=== PATIENT | female | born 1985 ===

== ENCOUNTER 2018-10-24 18:41 | Emergency (ER) | payer OTHER ==
--- NOTE | 2018-10-24 19:14 | Event Note ---
ED Screening Note ED Screening Note: LMP 4-27 NO OB YET RX NONE PMH NONE PSH NONE NO C/E/DRUGS This initial assessment/diagnostic orders/clinical plan/treatment(s) is/are subject to change based on patients health status, clinical progression and re- assessment by fellow clinical providers in the ED. Further treatment and workup at subsequent clinical providers discretion. Patient/guardian urged not to elope from the ED as their condition may be serious if not clinically assessed and managed. Initial orders include:
[2018-10-24] MEDS ORDERED: TYLENOL PO ONE (19:17)
[2018-10-24 19:46] LABS: Hematocrit 36.9 % (30.3-42.9); Hemoglobin 12.3 gm/dl (10.1-14.3); Mean Corpuscular HGB Conc 33 % (30-34); Mean Corpuscular Volume 91 fl (79-97); Platelet Count 300 K/mm3 (140-440); Red Blood Count 4.07 M/mm3 (3.65-5.03); Red Cell Distribution Width 13.6 % (13.2-15.2)
[2018-10-24 20:11] LABS: BUN/Creatinine Ratio 20; Blood Urea Nitrogen 10 mg/dL (7-17); Calcium 8.7 mg/dL (8.4-10.2); Hemolysis Index 9
[2018-10-24 20:14] LABS: Bacteria,Urine 2+ /HPF (Negative); Bilirubin,Urine NEG (Negative); Blood,Urine SM (Negative); Color,Urine Yellow (Yellow); Mucus,Urine FEW /HPF; Protein,Urine <15 mg/dL mg/dL (Negative); Urobilinogen,Urine < 2.0 mg/dL (<2.0)
--- NOTE | 2018-10-24 22:49 | Emergency Department Report ---
ED HPI - General Chief complaint: Vaginal Bleeding Stated complaint: VAG BLEED Time Seen by Provider: 10/24/18 22:44 Source: patient Mode of arrival: Ambulatory Limitations: No Limitations - History of Present Illness Initial comments: 33-year-old female comes in complaining of back pain and vaginal bleeding that started today. Patient is 4 para 3. Patient reports that her last menstrual period was 08/30/2018. Patient reports she department 7 weeks . Patient reports past medical history of none currently takes no medications on a daily basis and has no known drug allergies. Patient reports no complications during her pregnancies. MD Complaint: vaginal bleeding Onset/Timin -: days(s) Location: other (lower back) Severity scale (0 -10): 8 Quality: sharp Consistency: constant Improves with: none Worsens with: none Associated symptoms: vaginal bleeding Vaginal bleeding: light :: Yes Number of weeks : 7 OB History - Current : no complications Last menstrual period: 08/20/18 - Related Data : 4 Para: 3 Previous Rx's Medication Instructions Recorded Last Taken Type Acetaminophen [Acetaminophen TAB] 1,000 mg PO Q6HR PRN #30 tablet 10/24/18 Unknown Rx Nitrofurantoin Barron/M-Cryst 100 mg PO Q12HR 10 Days #20 capsule 10/24/18 Unknown Rx [Macrobid CAP] Vit No.129/Iron/Folic 1 each PO QDAY #90 tablet 10/24/18 Unknown Rx [ Tablet] Allergies Allergy/AdvReac Type Severity Reaction Status Date / Time No Known Allergies Allergy Verified 10/25/18 00:08 ED Review of Systems ROS: Stated complaint: VAG BLEED Other details as noted in HPI Comment: All other systems reviewed and negative Constitutional: denies: chills, fever Eyes: denies: eye pain, eye discharge, vision change ENT: denies: ear pain, throat pain Respiratory: denies: cough, shortness of breath, wheezing Genitourinary: other (vaginal bleeding) Musculoskeletal: back pain Skin: denies: rash, lesions Neurological: denies: headache, weakness, paresthesias Psychiatric: denies: anxiety, depression Hematological/Lymphatic: denies: easy bleeding, easy bruising ED Past Medical Hx - Past Medical History Previous Medical History?: No - Surgical History Past Surgical History?: No - Social History Smoking Status: Never Smoker Substance Use Type: None - Medications Home Medications: Home Medications Medication Instructions Recorded Confirmed Last Taken Type Acetaminophen [Acetaminophen TAB] 1,000 mg PO Q6HR PRN #30 tablet 10/24/18 Unknown Rx Nitrofurantoin Barron/M-Cryst 100 mg PO Q12HR 10 Days #20 capsule 10/24/18 Unknown Rx [Macrobid CAP] Vit No.129/Iron/Folic 1 each PO QDAY #90 tablet 10/24/18 Unknown Rx [ Tablet] ED Physical Exam - General Limitations: No Limitations - Head Head exam: Present: atraumatic, normocephalic - Eye Eye exam: Present: normal appearance - ENT ENT exam: Present: mucous membranes moist - Neck Neck exam: Present: normal inspection, full ROM - Respiratory Respiratory exam: Present: normal lung sounds bilaterally. Absent: respiratory distress - Cardiovascular Cardiovascular Exam: Present: regular rate, normal rhythm. Absent: systolic murmur, diastolic murmur, rubs, gallop - GI/Abdominal GI/Abdominal exam: Present: soft, tenderness, normal bowel sounds. Absent: distended, guarding, rebound - Extremities Exam Extremities exam: Present: normal inspection - Back Exam Back exam: Present: full ROM, tenderness - Neurological Exam Neurological exam: Present: alert, oriented X3 - Psychiatric Psychiatric exam: Present: normal affect, normal mood - Skin Skin exam: Present: warm, dry, intact, normal color. Absent: rash ED Course Vital Signs 10/24/18 20:01 Temperature 98 F Pulse Rate 89 Respiratory 18 Rate Blood Pressure 117/76 O2 Sat by Pulse 100 Oximetry ED Medical Decision Making - Lab Data Result diagrams: 10/24/18 19:25 10/24/18 19:25 Laboratory Tests 10/24/18 10/24/18 10/24/18 19:25 19:25 19:25 WBC 11.8 H RBC 4.07 Hgb 12.3 Hct 36.9 MCV 91 MCH 30 MCHC 33 RDW 13.6 Plt Count 300 Sodium 136 L Potassium 3.4 L Chloride 100.8 Carbon Dioxide 23 Anion Gap 16 BUN 10 Creatinine 0.5 L Estimated GFR > 60 BUN/Creatinine Ratio 20 Glucose 76 Calcium 8.7 HCG, Quant 4254 H Urine Color Urine Turbidity Urine pH Ur Specific Dodson Urine Protein Urine Glucose (UA) Urine Ketones Urine Blood Urine Nitrite Urine Bilirubin Urine Urobilinogen Ur Leukocyte Esterase Urine WBC (Auto) Urine RBC (Auto) U Epithel Cells (Auto) Urine Bacteria (Auto) Urine Mucus Blood Type 10/24/18 10/24/18 19:25 19:51 WBC RBC Hgb Hct MCV MCH MCHC RDW Plt Count Sodium Potassium Chloride Carbon Dioxide Anion Gap BUN Creatinine Estimated GFR BUN/Creatinine Ratio Glucose Calcium HCG, Quant Urine Color Yellow Urine Turbidity Clear Urine pH 6.0 Ur Specific Dodson 1.012 Urine Protein <15 mg/dl Urine Glucose (UA) Neg Urine Ketones Neg Urine Blood Sm Urine Nitrite Neg Urine Bilirubin Neg Urine Urobilinogen < 2.0 Ur Leukocyte Esterase Tr Urine WBC (Auto) 8.0 H Urine RBC (Auto) 2.0 U Epithel Cells (Auto) < 1.0 Urine Bacteria (Auto) 2+ Urine Mucus Few Blood Type A POSITIVE - Radiology Data Radiology results: report reviewed Patient: TOM HAIR R#: [id number] : 1985 Acct:[id number] Age/Sex: 33 / F ADM Date: 10/24/18 Loc: ED Attending Dr: Ordering Physician: BARB LEMUS Date of Service: 10/24/18 Procedure(s): US OB <= 14 weeks fetus Accession Number(s): [id number] cc: BARB LEMUS PROCEDURE: US OB <= 14 WEEKS FETUS TECHNIQUE: Real-time transabdominal and transvaginal sonography of the uterus, placenta, amniotic fluid, adnexa, and fetus was performed with image documentation. Measurements were obtained to determine age/size. M-mode Doppler was used to document heartbeat. ADDITIONAL GESTATION: None. HISTORY: VAG BLEED COMPARISONS: None . FINDINGS: CRL: 4.3 mm, which corresponds to a gestational age of: 6 weeks, 1 days. Yolk Sac: Appropriate for gestational age. . Embryonic Cardiac Activity: No embryonic heart activity is identified on this study . Gestational Sac: Size and shape are appropriate for gestational age Placenta: Normal Amniotic fluid: Appropriate for gestational age. Cervix: Normal. Right Ovary: Normal . Left Ovary: Normal . Uterus and adnexa: There is a fibroid within the uterus measuring 22 mm IMPRESSION: There is a gestational sac within the uterus. A pole is identified. The gestational age is approximately 6 weeks. There is no evidence of embryonic cardiac activity on this study. These findings could represent multiple etiologies including early or failure. Follow- up studies may be needed and could include serial beta-hCG levels and repeat ultrasound. This document is electronically signed by Nakita Grider DO., October 24 2018 11:15:29 PM ET Transcribed By: [facility] Dictated By: NAKITA GRIDER MD Electronically Authenticated By: NAKITA GRIDER MD Signed Date/Time: 10/24/182316 DD/ 07 TD/TT: 10/24/182308 - Medical Decision Making 33-year-old [place] female presents to the emergency room for lower back pain and vaginal spotting reports she is 7 weeks . Ultrasound shows the patient has an intrauterine gestation with no cardiac activity at this may be an early or a fell . Radiologist recommends patient to have follow-up serial hCGs and a repeat ultrasound. Patient was given Tylenol 1000 mg in triage. Patient be discharged home with instructions to return in 48 hours have her repeat hCG and ultrasound. Patient instructed she can take Tylenol for pain management. Urinalysis shows 1+ bacteria with 8 wbc's. Will treat patient for urinary tract infection as she does have 2+ bacteria. Patient was placed on Macrobid and to follow-up with an [facility] provider. Critical care attestation.: If time is entered above; I have spent that time in minutes in the direct care of this critically ill patient, excluding procedure time. ED Disposition Clinical Impression: Vaginal spotting Lower back pain Qualifiers: Chronicity: acute Back pain laterality: bilateral Sciatica presence: without sciatica Qualified Code(s): M54.5 - Low back pain UTI (urinary tract infection) during Qualifiers: Trimester: first trimester Qualified Code(s): O23.41 - Unspecified infection of urinary tract in , first trimester Disposition: DC-01 TO HOME OR SELFCARE Is pt being admited?: No Does the pt Need Aspirin: No Condition: Stable Instructions: Threatened Miscarriage (ED), Acute Low Back Pain (ED) Additional Instructions: Complete antibiotics as prescribed. Pain medication as needed. Prescriptions: Acetaminophen [Acetaminophen TAB] 1,000 mg PO Q6HR PRN #30 tablet PRN Reason: Pain , Severe (7-10) Nitrofurantoin Barron/M-Cryst [Macrobid CAP] 100 mg PO Q12HR 10 Days #20 capsule Vit No.129/Iron/Folic [ Tablet] 1 each PO QDAY #90 tablet Referrals: MELISSA CAZARESREDFORD MD BREANA [Primary Care Provider] - 3-5 Days [facility] [Provider Group] - 3-5 Days [facility] [Provider Group] - 3-5 Days [facility] [Provider Group] - 3-5 Days Forms: Work/School Release Form(ED)
--- NOTE | 2018-10-24 23:17 | Ultrasound Report ---
PROCEDURE: US OB <= 14 WEEKS FETUS TECHNIQUE: Real-time transabdominal and transvaginal sonography of the uterus, placenta, amniotic fl uid, adnexa, and fetus was performed with image documentation. Measurements were obtained to determin e age/size. M-mode Doppler was used to document heartbeat. ADDITIONAL GESTATION: None. HISTORY: VAG BLEED COMPARISONS: None . FINDINGS: CRL: 4.3 mm, which corresponds to a gestational age of: 6 weeks, 1 days. Yolk Sac: Appropriate for gestational age. . Embryonic Cardiac Activity: No embryonic heart activity is identified on this study . Gestational Sac: Size and shape are appropriate for gestational age Placenta: Normal Amniotic fluid: Appropriate for gestational age. Cervix: Normal. Right Ovary: Normal . Left Ovary: Normal . Uterus and adnexa: There is a fibroid within the uterus measuring 22 mm IMPRESSION: There is a gestational sac within the uterus. A pole is identified. The gestational age is appr oximately 6 weeks. There is no evidence of embryonic cardiac activity on this study. These findings c ould represent multiple etiologies including early or failure. Follow-up studies may be needed and could include serial beta-hCG levels and repeat ultrasound. This document is electronically signed by Nakita Grider DO., October 24 2018 11:15:29 PM ET
[2018-10-25] MEDS ORDERED: TYLENOL ONE (00:03)
[2018-10-25 08:23] VITALS: BP 124/68
== END 2018-10-25 00:10 | disposition home or self-care (01) ==
LOC: ED 18:41
DX: O23.41 Unspecified infection of urinary tract in pregnancy, first trimester (principal); O20.8 Other hemorrhage in early pregnancy; Z3A.01 Less than 8 weeks gestation of pregnancy
CPT/HCPCS: 36415; 76801; 76817; 80048; 81001; 84702; 85027; 86900; 86901; 87076; 87086; 87186; 99284